=== PATIENT | female | born 1995 | race Caucasian/White ===

== ENCOUNTER 2016-07-22 13:08 | Emergency (ER) | payer BC ==
[2016-07-22 13:39] VITALS: BP 118/63
[2016-07-22] MEDS ORDERED: Lidocaine 1% MPF wEPI 200,000* 30 ML SDV INJ ONE (15:45)
--- NOTE | 2016-07-22 16:23 | UC ---
Skin Complaint HPI - HPI Summary HPI Summary: 21 yo female arrives here to have right axillary abscess I&Ded. Has had this done twice in past no hx MRSA 11 weeks pain/swelling x days no fever - History of Current Complaint Chief Complaint: UCWounds Time Seen by Provider: 07/22/16 15:20 Stated Complaint: SOFT TISSUE COMPLAINT Hx Obtained From: Patient ?: Yes Onset/Duration: Gradual Onset, Lasting Days Timing: Constant Onset Severity: Mild Current Severity: Mild Pain Intensity: 4 Pain Scale Used: 0-10 Numeric Location: Discrete Character: Pain, Raised Aggravating: Touch Associated Signs & Symptoms: Positive: Tenderness - Allergy/Home Medications Allergies/Adverse Reactions: Allergies Allergy/AdvReac Type Severity Reaction Status Date / Time Morphine Allergy Hallucinati Verified 07/22/16 13:40 ons Home Medications: Home Medications Multivit-Min W/Fe-FA [ and Iron] 1 tab PO DAILY 07/22/16 [ History Confirmed 07/22/16] Review of Systems Constitutional: Negative Skin: Negative Eyes: Negative ENT: Negative Respiratory: Negative Cardiovascular: Negative Gastrointestinal: Negative Genitourinary: Negative Motor: Negative Neurovascular: Negative Musculoskeletal: Negative Neurological: Negative Psychological: Negative All Other Systems Reviewed And Are Negative: Yes PMH/Surg Hx/FS Hx/Imm Hx Previously Healthy: Yes - Surgical History Surgical History: None - Family History Known Family History: Positive: Hypertension - Social History Alcohol Use: None Substance Use Type: None, Marijuana Substance Use Comment - Amount & Last Used: Approx 2 days ago. Smoking Status (MU): Former Smoker Household Exposure Type: Cigarettes Physical Exam Triage Information Reviewed: Yes Appearance: Well-Appearing, No Pain Distress, Well-Nourished Vital Signs: Initial Vital Signs Temp 99.0 F 07/22/16 13:39 Pulse 85 07/22/16 13:39 Resp 16 07/22/16 13:39 BP 118/63 07/22/16 13:39 Pulse Ox 99 07/22/16 13:39 Vital Signs Reviewed: Yes Eyes: Positive: Conjunctiva Clear ENT: Positive: Hearing grossly normal. Negative: Nasal congestion, Nasal drainage, Trismus, Muffled/hoarse voice Neck: Positive: Supple, Nontender Respiratory: Positive: Lungs clear, Normal breath sounds, No respiratory distress, No accessory muscle use Cardiovascular: Positive: No Murmur, Pulses Normal Musculoskeletal: Positive: ROM Intact, No Edema Neurological Exam: Normal Neurological: Positive: Alert Psychological Exam: Normal Skin: Positive: Other - tender/swollen right axilla marble sized aabscess Course/Dx - Diagnoses Provider Diagnoses: Abscess right axilla. Incision and drainage Procedures - Procedure Summary Procedure Summary: timeout done sterile prep anesth with 1 cc lido plus epi incised with #12 blade < 1 cc pus expressed culture obtained sterile dressing applied - Incision and Drainage Site: right axilla Anesthesia: Lidocaine Instrument(s): Scalpel Packing: Other - none Discharge - Discharge Plan Condition: Stable Disposition: HOME Prescriptions: Cephalexin CAP* [Keflex 500 CAP*] 500 mg PO TID #15 cap Patient Education Materials: Abscess (ED) Forms: *Work Release Referrals: No Primary Care Phys,NOPCP [Primary Care Provider] - Additional Instructions: warm soapy compresses 2-4 x a day until better RECHECK FOR WORSENING SYMPTOMS OR IF NOT BETTER IN ONE WEEK A culture is pending and will take 2-3 days to come back
== END 2016-07-22 16:13 | disposition home or self-care (01) ==
LOC: UCEAST 13:08
DX: Z87.891 Personal history of nicotine dependence (principal); O26.891 Other specified pregnancy related conditions, first trimester; Z3A.11 11 weeks gestation of pregnancy; L02.411 Cutaneous abscess of right axilla
CPT/HCPCS: 10060; 87070; 87076; 87077; 87205; 87640; 87641; 99202; G0463; J2001

== ENCOUNTER 2018-08-06 12:30 | Emergency (ER) | payer OTHER ==
[2018-08-06 12:40] VITALS: BP 114/82
--- NOTE | 2018-08-06 12:48 | UC ---
Abdominal Pain Female HPI - HPI Summary HPI Summary: 23 yo female presents with RLQ pain. She tells me that she woke up this morning around 0800 and noticed some mild to moderate RLQ pain. Since that time the pain has gotten much worse and she feels nauseous, but has not vomited. She has had ovarian cysts in the past, but is unsure if this feels the same. The pain is radiating into her right flank and is worse with movements such as walking, bumps in the road during car ride, and hip flexion. She mentions that she had an on 06/14 and has had some intermittent vaginal bleeding since that time, but has not had any this week. She denies fever, SOB, chest pain, vomiting , diarrhea, dysuria, vaginal discharge. - History of Current Complaint Chief Complaint: UCAbdominalPain Stated Complaint: ABDOMINAL PAIN Time Seen by Provider: 08/06/18 12:47 Hx Obtained From: Patient Hx Last Menstrual Period: March Onset/Duration: Sudden Onset Severity Initially: Moderate Severity Currently: Severe Pain Intensity: 6 Pain Scale Used: 0-10 Numeric Location: Discrete At: RLQ Allergies/Adverse Reactions: Allergies Allergy/AdvReac Type Severity Reaction Status Date / Time morphine Allergy Hallucinati Verified 08/06/18 13:28 ons Home Medications: Home Medications Control 08/06/18 [History] PMH/Surg Hx/FS Hx/Imm Hx - Additional Past Medical History Additional PMH: Ovarian cysts - Surgical History Surgical History: None - Family History Known Family History: Positive: Hypertension, Diabetes - Social History Lives: With Family Alcohol Use: Weekly Alcohol Amount: 4/5 days a week Substance Use Type: None Substance Use Comment - Amount & Last Used: Approx 2 days ago. Smoking Status (MU): Light Every Day Tobacco Smoker Amount Used/How Often: 1-2 sig/day Household Exposure Type: Cigarettes Review of Systems All Other Systems Reviewed And Are Negative: Yes Constitutional: Positive: Negative Skin: Positive: Negative Respiratory: Positive: Negative Cardiovascular: Positive: Negative Gastrointestinal: Positive: Abdominal Pain, Nausea Genitourinary: Positive: Negative Neurovascular: Positive: Negative Musculoskeletal: Positive: Negative Neurological: Positive: Negative Psychological: Positive: Negative Physical Exam - Summary Physical Exam Summary: GENERAL: Mild pain distress SKIN: No rashes, sores, lesions, or open wounds. NECK: Supple. Nontender. No lymphadenopathy. CHEST: CTAB. No r/r/w. No accessory muscle use. Breathing comfortably and in no distress. CV: RRR. Without m/r/g. Pulses intact. Cap refill <2seconds ABDOMEN: Moderate TTP at RLQ with slight guarding. RIGHT CVA TTP. POSITIVE rovsgins, psoas, and obturator for RLQ pain. No distention. Bowel sounds present NEURO: Alert. PSYCH: Age appropriate behavior. Triage Information Reviewed: Yes Vital Signs: Initial Vital Signs Temp 99.4 F 08/06/18 12:35 Pulse 88 08/06/18 12:35 Resp 16 08/06/18 12:35 BP 114/82 08/06/18 12:35 Pulse Ox 100 08/06/18 12:35 Laboratory Tests 08/06/18 08/06/18 12:50 12:52 POC Urine Color Yellow POC Urine Clarity Clear POC Urine pH 8.5 POC Ur Specif [place] 1.015 POC Urine Protein Negative POC Ur Glucose (UA) Negative POC Urine Ketones 1+ A POC Urine Blood Trace-intact A POC Urine Nitrite Negative POC Urine Bilirubin Negative POC Urine Urobilinogen 0.2 POC U Leukocyte Esteras Negative POC Ur Test Negative Vital Signs Reviewed: Yes Abd Pain Female Course/Dx - Course Course Of Treatment: UA negative for infection. Urine negative. Her symptoms could be related to an ovarian cyst as she has a strong history of these, but her symptoms today seem more consistent with appendicitis. Given this , I recommended that she be further evaluated in the ED - she was agreeable to this and her boyfriend with her today will drive her. - Differential Dx/Diagnosis Provider Diagnosis: RLQ abdominal pain Discharge - Sign-Out/Discharge Documenting (check all that apply): Patient Departure All imaging exams completed and their final reports reviewed: No Studies - Discharge Plan Condition: Stable Disposition: HOME-RECOMMEND TO ED Referrals: Roma Lazo MD [Primary Care Provider] - Additional Instructions: Please go directly to the ER for further evaluation of your RLQ pain - Billing Disposition and Condition Condition: STABLE Disposition: Home-Recommend to ED - Attestation Statements Provider Attestation: I was available for consult. This patient was seen by the MARIA EUGENIA. The patient was not presented to, seen by, or examined by me. -Marcin
== END 2018-08-06 13:00 | disposition home health service (06) ==
LOC: UCEAST 12:30
DX: R10.31 Right lower quadrant pain (principal); F17.210 Nicotine dependence, cigarettes, uncomplicated
CPT/HCPCS: 81003; 84702; 99212; G0463

== ENCOUNTER 2018-08-06 13:22 | Emergency (ER) | payer OTHER ==
[2018-08-06 15:44] LABS: Urine Appearance Cloudy; Urine Bilirubin Negative (Negative); Urine Blood Negative (Negative); Urine Color Yellow; Urine Glucose Negative (Negative); Urine Ketones 2+ (Negative); Urine Nitrite Negative (Negative); Urine Protein Negative (Negative); Urine Specific Gravity 1.027 (1.010-1.030); Urine Urobilinogen Negative (Negative)
[2018-08-06 16:52] LABS: ABS Basophils 0.1 10^3/ul (0-0.2); ABS Lymphocytes 1.9 10^3/ul (1.0-4.8); ABS Monocytes 0.4 10^3/ul (0-0.8); ABS Neutrophils 6.5 10^3/ul (1.5-7.7); Eosinophil % 0.1 %; Hematocrit 40 % (35-47); Hemoglobin 13.5 g/dL (12.0-16.0); Lymphocyte % 21.4 %; Mean Corpuscular HGB Conc 34 g/dL (31-36); Mean Corpuscular Hemoglobin 31 pg (27-31); Mean Corpuscular Volume 90 fL (80-97); Mean Platelet Volume 8.4 fL (7.4-10.4); Nucleated Red Blood Cells % 0.2; Platelet Count 244 10^3/uL (150-450); Red Blood Count 4.43 10^6 /uL (3.70-4.87); Red Cell Distribution Width 14 % (10-15); White Blood Count 8.8 10^3/uL (3.5-10.8)
[2018-08-06 17:15] LABS: HCG Pregnancy 1.31 mIU/mL
[2018-08-06 17:24] LABS: ALT 11 U/L (7-52); AST 16 U/L (13-39); Albumin 4.4 g/dL (3.2-5.2); Albumin/Globulin Ratio 1.7 (1-3); Alkaline Phosphatase 72 U/L (34-104); Amylase 17 U/L (29-103); Anion Gap 7 mmol/L (2-11); Blood Urea Nitrogen 12 mg/dL (6-24); C Reactive Protein < 1.00 mg/L (<8.01); CO2 Carbon Dioxide 25 mmol/L (22-32); Calcium 9.5 mg/dL (8.6-10.3); Chloride 108 mmol/L (101-111); Creatine Kinase 87 U/L (10-223); EGFR African American 147.4 (>60); EGFR Non-African American 121.8 (>60); Globulin 2.6 g/dL (2-4); Glucose 89 mg/dL (70-100); Potassium 3.8 mmol/L (3.5-5.0); Sodium 140 mmol/L (135-145)
--- NOTE | 2018-08-06 17:51 | ED ---
Abdominal Pain/Female - HPI Summary HPI Summary: A 23 y/o female presents to [facility] with a chief complaint of RLQ abdominal pain since this morning. She reports nausea and constipation without diarrhea, vomiting or vaginal bleeding. At triage she rated her pain as a 6/10 in severity. She does not believe that she is . She has a Hx of ovarian cyst. She denies EtOH use or smoking. - History of Current Complaint Chief Complaint: EDAbdPain Stated Complaint: ABD PAIN PER PT Time Seen by Provider: 08/06/18 17:44 Hx Obtained From: Patient Hx Last Menstrual Period: March Onset/Duration: Sudden Onset, Lasting Hours, Still Present Timing: Constant Severity Initially: Moderate Severity Currently: Moderate Pain Intensity: 5 Pain Scale Used: 0-10 Numeric Location: Discrete At: RLQ Radiates: No Aggravating Factor(s): Nothing Alleviating Factor(s): Nothing Associated Signs and Symptoms: Positive: Constipation, Nausea. Negative: Fever , Vaginal Bleeding, Vomiting, Diarrhea Allergies/Adverse Reactions: Allergies Allergy/AdvReac Type Severity Reaction Status Date / Time morphine Allergy Hallucinati Verified 08/06/18 13:28 ons Home Medications: Home Medications Estradiol/Levonorgestrel 1 tab PO DAILY 08/06/18 [History Confirmed 08/06/18] PMH/Surg Hx/FS Hx/Imm Hx Sensory History: Denies: Hx Deafness EENT History: Denies: Hx Deafness Infectious Disease History: No Infectious Disease History: Denies: Traveled Outside the [place] in Last 30 Days - Family History Known Family History: Positive: Hypertension, Diabetes - Social History Alcohol Use: Weekly Alcohol Amount: 4/5 days a week Substance Use Type: Reports: None Substance Use Comment - Amount & Last Used: has not been Smoking Status (MU): Former Smoker Amount Used/How Often: 1-2 sig/day Review of Systems Negative: Fever Positive: Abdominal Pain, Nausea, Other - positive: constipation. Negative: Vomiting, Diarrhea Positive: other - negative: vaginal bleeding All Other Systems Reviewed And Are Negative: Yes Physical Exam - Summary Physical Exam Summary: Appearance: Well appearing, no pain distress Skin: warm, dry, reflects adequate perfusion Head/face: normal Eyes: EOMI, NILE ENT: normal Neck: supple, non-tender Respiratory: CTA, breath sounds present Cardiovascular: RRR, pulses symmetrical Abdomen: Tenderness RLQ, soft Musculoskeletal: normal, strength/ROM intact Neuro: normal, sensory motor intact, A&Ox3 Triage Information Reviewed: Yes Vital Signs On Initial Exam: Initial Vitals Temp Pulse Resp BP Pulse Ox 99.2 F 97 18 128/84 100 08/06/18 13:26 08/06/18 13:26 08/06/18 13:26 08/06/18 13:26 08/06/18 13:26 Vital Signs Reviewed: Yes Diagnostics - Vital Signs Vital Signs Temp Pulse Resp BP Pulse Ox 08/06/18 15:21 98.2 F 68 16 106/64 100 08/06/18 13:26 99.2 F 97 18 128/84 100 - Laboratory Lab Results: Lab Results 08/06/18 08/06/18 08/06/18 Range/Units 15:28 16:42 16:42 WBC 8.8 (3.5-10.8) 10^3/uL RBC 4.43 (3.70-4.87) 10^6 /uL Hgb 13.5 (12.0-16.0) g/dL Hct 40 (35-47) % MCV 90 (80-97) fL MCH 31 (27-31) pg MCHC 34 (31-36) g/dL RDW 14 (10-15) % Plt Count 244 (150-450) 10^3/uL MPV 8.4 (7.4-10.4) fL Neut % (Auto) 73.4 % Lymph % (Auto) 21.4 % [place] % (Auto) 4.2 % Eos % (Auto) 0.1 % Baso % (Auto) 0.9 % Absolute Neuts (auto) 6.5 (1.5-7.7) 10^3/ul Absolute Lymphs (auto) 1.9 (1.0-4.8) 10^3/ul Absolute Monos (auto) 0.4 (0-0.8) 10^3/ul Absolute Eos (auto) 0.0 (0-0.6) 10^3/ul Absolute Basos (auto) 0.1 (0-0.2) 10^3/ul Absolute Nucleated RBC 0.0 10^3/ul Nucleated RBC % 0.2 APTT 33.4 (26.0-38.0) seconds Sodium (135-145) mmol/L Potassium (3.5-5.0) mmol/L Chloride (101-111) mmol/L Carbon Dioxide (22-32) mmol/L Anion Gap (2-11) mmol/L BUN (6-24) mg/dL Creatinine (0.51-0.95) mg/dL Est GFR ( Amer) (>60) Est GFR (Non-Af Amer) (>60) BUN/Creatinine Ratio (8-20) Glucose (70-100) mg/dL Lactic Acid (0.5-2.0) mmol/L Calcium (8.6-10.3) mg/dL Magnesium (1.9-2.7) mg/dL Total Bilirubin (0.2-1.0) mg/dL AST (13-39) U/L ALT (7-52) U/L Alkaline Phosphatase (34-104) U/L Total Creatine Kinase (10-223) U/L C-Reactive Protein (<8.01) mg/L Total Protein (6.4-8.9) g/dL Albumin (3.2-5.2) g/dL Globulin (2-4) g/dL Albumin/Globulin Ratio (1-3) Amylase (29-103) U/L Lipase (11.0-82.0) U/L Beta HCG, Quant mIU/mL Urine Color Yellow Urine Appearance Cloudy Urine pH 6.0 (5-9) Ur Specific [place] 1.027 (1.010-1.030) Urine Protein Negative (Negative) Urine Ketones 2+ A (Negative) Urine Blood Negative (Negative) Urine Nitrate Negative (Negative) Urine Bilirubin Negative (Negative) Urine Urobilinogen Negative (Negative) Ur Leukocyte Esterase Negative (Negative) Urine Glucose Negative (Negative) 08/06/18 08/06/18 Range/Units 16:42 16:42 WBC (3.5-10.8) 10^3/uL RBC (3.70-4.87) 10^6 /uL Hgb (12.0-16.0) g/dL Hct (35-47) % MCV (80-97) fL MCH (27-31) pg MCHC (31-36) g/dL RDW (10-15) % Plt Count (150-450) 10^3/uL MPV (7.4-10.4) fL Neut % (Auto) % Lymph % (Auto) % [place] % (Auto) % Eos % (Auto) % Baso % (Auto) % Absolute Neuts (auto) (1.5-7.7) 10^3/ul Absolute Lymphs (auto) (1.0-4.8) 10^3/ul Absolute Monos (auto) (0-0.8) 10^3/ul Absolute Eos (auto) (0-0.6) 10^3/ul Absolute Basos (auto) (0-0.2) 10^3/ul Absolute Nucleated RBC 10^3/ul Nucleated RBC % APTT (26.0-38.0) seconds Sodium 140 (135-145) mmol/L Potassium 3.8 (3.5-5.0) mmol/L Chloride 108 (101-111) mmol/L Carbon Dioxide 25 (22-32) mmol/L Anion Gap 7 (2-11) mmol/L BUN 12 (6-24) mg/dL Creatinine 0.60 (0.51-0.95) mg/dL Est GFR ( Amer) 147.4 (>60) Est GFR (Non-Af Amer) 121.8 (>60) BUN/Creatinine Ratio 20.0 (8-20) Glucose 89 (70-100) mg/dL Lactic Acid 0.7 (0.5-2.0) mmol/L Calcium 9.5 (8.6-10.3) mg/dL Magnesium 2.0 (1.9-2.7) mg/dL Total Bilirubin 0.60 (0.2-1.0) mg/dL AST 16 (13-39) U/L ALT 11 (7-52) U/L Alkaline Phosphatase 72 (34-104) U/L Total Creatine Kinase 87 (10-223) U/L C-Reactive Protein < 1.00 (<8.01) mg/L Total Protein 7.0 (6.4-8.9) g/dL Albumin 4.4 (3.2-5.2) g/dL Globulin 2.6 (2-4) g/dL Albumin/Globulin Ratio 1.7 (1-3) Amylase 17 L (29-103) U/L Lipase < 10 L (11.0-82.0) U/L Beta HCG, Quant 1.31 mIU/mL Urine Color Urine Appearance Urine pH (5-9) Ur Specific [place] (1.010-1.030) Urine Protein (Negative) Urine Ketones (Negative) Urine Blood (Negative) Urine Nitrate (Negative) Urine Bilirubin (Negative) Urine Urobilinogen (Negative) Ur Leukocyte Esterase (Negative) Urine Glucose (Negative) Result Diagrams: 08/06/18 16:42 08/06/18 16:42 Lab Statement: Any lab studies that have been ordered have been reviewed, and results considered in the medical decision making process. Abdominal Pain Fem Course/Dx - Course Course Of Treatment: A 23 y/o female presents to [facility] with a chief complaint of RLQ abdominal pain since this morning. She reports nausea and constipation without diarrhea, vomiting or vaginal bleeding. The physical exam revealed tenderness RLQ. In the ED course the patient was given Sodium Chloride IV. Blood work, chemistries and UA obtained. This patient will be signed out from Dr. Jackson to Dr. Holloway upon shift change at 19:00 08/06/[address] abdomen/ pelvis. - Diagnoses Differential Diagnosis: Positive: Diverticulitis, Pancreatitis, Renal Colic, Urinary Tract Infection Provider Diagnoses: Abdominal pain Discharge - Sign-Out/Discharge Documenting (check all that apply): Sign-Out Patient Signing out patient TO: Farhan Holloway - pending CT abdomen/pelvis Patient Received Moderate/Deep Sedation with Procedure: No - Discharge Plan Condition: Stable Referrals: Roma Lazo MD [Primary Care Provider] - - Billing Disposition and Condition Condition: STABLE - Attestation Statements Document Initiated by Scribe: Yes Documenting Scribe: Elgin Kulkarni Provider For Whom [place] is Documenting (Include Credential): Rob Jackson MD Scribe Attestation: Elgin Staton, scribed for Rob Jackson MD on 08/06/18 at 1839. Scribe Documentation Reviewed: Yes Provider Attestation: The documentation as recorded by the Elgin carroll accurately reflects the service I personally performed and the decisions made by , Rob Jackson MD Status of Scribe Document: Viewed
[2018-08-06] MEDS ORDERED: NS 0.9% 1000 ML** 1,000 ML IV SCH (18:00)
--- NOTE | 2018-08-06 19:19 | ED ---
Progress - Progress Note Progress Note: This pt was signed out from Dr. Jackson to Dr. Rocha at shift change at 19:00 on 08/06/18, pending disposition, awaiting abdomen/pelvis CT. Abdomen/pelvis CT, as read by radiologist IMPRESSION: No CT findings to correlate with patient's symptomatology. Specifically no appendicitis. Dr. Rocha has reviewed this report. Course/Dx - Course Course Of Treatment: This pt was signed out by Dr. Jackson pending CT of abdomen/ pelvis. CT shows no CT findings to correlate with patient's symptomatology. Specifically no appendicitis. Pt will be discharged home with follow up from her PCP. She was given instructions to return to the ED for any worsening or new symptoms. - Diagnoses Provider Diagnoses: Abdominal pain Discharge - Sign-Out/Discharge Documenting (check all that apply): Patient Departure - Discharged home, Receiving Sign-Out Receiving patient FROM: Rob Jackson Patient Received Moderate/Deep Sedation with Procedure: No - Discharge Plan Condition: Stable Disposition: HOME Patient Education Materials: Abdominal Pain (ED) Referrals: Roma Lazo MD [Primary Care Provider] - Additional Instructions: Please follow up with your primary care provider in 1-2 days. RETURN TO EMERGENCY DEPARTMENT FOR ANY NEW OR WORSENING SYMPTOMS. - Attestation Statements Document Initiated by Scribe: Yes Documenting Scribe: Kirstie Huynh Provider For Whom Scribe is Documenting (Include Credential): Yaw Rocha MD Scribe Attestation: Kirstie Staton, scribed for Yaw Rocha MD on 08/06/18 at [id number]. Status of Scribe Document: Ready
[2018-08-06] MEDS ORDERED: Iohexol 300* (CONTRAST) 10 ML SDV IV ONE (20:19)
[2018-08-07 00:11] VITALS: BP 129/78
== END 2018-08-06 22:45 | disposition home or self-care (01) ==
LOC: ED 13:22
DX: R10.31 Right lower quadrant pain (principal); R11.0 Nausea; K59.00 Constipation, unspecified; Z87.891 Personal history of nicotine dependence; Z88.5 Allergy status to narcotic agent
CPT/HCPCS: 36415; 74177; 80053; 81003; 82150; 82550; 83605; 83690; 83735; 84702; 85025; 85730; 86140; 96360; 99283; Q9967